=== PATIENT | female | born 1980 | race African-American/Black ===

== ENCOUNTER 2016-11-23 10:06 | Emergency (ER) | payer OTHER ==
[~2016-11-23] VITALS: Ht 170.2 cm; Wt 50.8 kg
[2016-11-23] MEDS ORDERED: TIZANIDINE HCL4 MG PO (10:26)
[2016-11-23] MEDS ORDERED: LOTRISONE CREAM15 GM TOP (10:26)
[2016-11-23 10:44] VITALS: BP 151/112
== END 2016-11-23 10:46 | disposition home or self-care (01) ==
LOC: ER 10:06
DX: S13.4XXA Sprain of ligaments of cervical spine, initial encounter (principal); M25.532 Pain in left wrist; I10 Essential (primary) hypertension; F17.210 Nicotine dependence, cigarettes, uncomplicated; F10.99 Alcohol use, unspecified with unspecified alcohol-induced disorder; Z88.6 Allergy status to analgesic agent; V89.2XXA Person injured in unspecified motor-vehicle accident, traffic, initial encounter; Y93.I9 Activity, other involving external motion; Y92.89 Other specified places as the place of occurrence of the external cause; Y99.8 Other external cause status

== ENCOUNTER 2018-09-13 02:19 | Inpatient (IN) | payer OTHER ==
[2018-09-13] VITALS (8 sets, daily range): BP systolic 95–148; BP diastolic 61–93
[~2018-09-13] VITALS: Ht 170.2 cm; Wt 53.1 kg
[~2018-09-13 02:19] MED LIST: LOTRISONE CREAM15 GM TOP; TIZANIDINE HCL4 MG PO
[2018-09-13 03:10] LABS: ABSOLUTE NEUTROPHILS 3.2 thou/uL (1.4-8.2); BASOPHILS 1.2 % (0.0-2.0); EOSINOPHILS 1.6 % (0.0-3.0); HEMATOCRIT 45.1 % (37.0-47.0); HEMOGLOBIN 15.6 gm/dL (12.0-15.0); LYMPHOCYTES 27.2 % (24.0-44.0); MCH 33.9 pg (26.0-34.0); MCHC 34.5 g/dL (28.0-37.0); MCV 98.2 fL (80.0-100.0); MONOCYTES 10.6 % (1.0-8.0); PLATELET COUNT 214 thou/uL (150-400); POLYS 59.4 % (36.0-66.0); RDW 12.5 % (10.5-14.5); WBC 5.3 thou/uL (4.0-11.0)
[2018-09-13 03:12] LABS: URINE BILIRUBIN 1+ (Negative); URINE BLOOD TRACE (Negative); URINE CLARITY SL CLOUDY; URINE COLOR YELLOW; URINE GLUCOSE-RANDOM* NEGATIVE (Negative); URINE KETONES 1+ (Negative); URINE LEUKOCYTES-REFLEX NEGATIVE (Negative); URINE NITRITE-REFLEX NEGATIVE (Negative); URINE PROTEIN (DIPSTICK) 2+ (Negative)
[2018-09-13 03:20] LABS: AMP/METHAMP Negative (Negative); BARBITURATES Negative (Negative); BENZODIAZEPINES Negative (Negative); COCAINE Negative (Negative); METHADONE Negative (Negative); OPIATES Negative (Negative); PCP Negative (Negative)
[2018-09-13 03:28] LABS: AMORPHOUS URATES Moderate /LPF (None Seen); BACTERIA-REFLEX 1-9 Few /HPF (None Seen); FINE GRANULAR CASTS 4-10 Moderate /LPF (None Seen); HYALINE CASTS 4-10 Moderate /LPF (None Seen); MUCUS >6 Heavy strn/LPF (None Seen); SQUAMOUS 4-10 Moderate /LPF (0-3); URINE RBC 3-10 Few /HPF (0-2); URINE WBC-REFLEX 0-5 Rare /HPF (0-5)
[2018-09-13 03:30] LABS: ALBUMIN 4.3 g/dL (3.4-5.0); ANION GAP 22 mmol/L (7-16); BUN 12 mg/dL (7-18); CHLORIDE 91 mmol/L (98-107); CO2 19 mmol/L (21-32); CREATININE 0.9 mg/dL (0.6-1.0); GLUCOSE 115 mg/dL (74-106); LIPASE 127 U/L (73-393); MAGNESIUM 1.7 mg/dL (1.8-2.4); POTASSIUM 2.6 mmol/L (3.5-5.1); SALICYLATE 8.9 mg/dL (2.8-20.0); SGOT 596 U/L (15-37); SGPT 678 U/L (30-65); SODIUM 132 mmol/L (136-145); TOTAL BILIRUBIN 0.8 mg/dL (<0.1-1.0); TOTAL PROTEIN 8.6 g/dL (6.4-8.2); TROPONIN-I <0.06 ng/mL (<0.06)
[2018-09-13 04:26] LABS: PHOSPHORUS 1.5 mg/dL (2.5-4.9)
[2018-09-13 04:48] LABS: FOLIC ACID 12.1 ng/mL (8.6-58.9)
[2018-09-13] MEDS ORDERED: HYDROCHLOROTHIA25 M2 PO (05:38)
[2018-09-13] MEDS ORDERED: NORVASC5 MG PO (05:38)
--- NOTE | 2018-09-13 08:22 | EKG ---
[address] [address] ELECTROCARDIOGRAM REPORT Name: RASHEL CHERY Room #: 357-P ADM IN M.R.#: [id number] ������������������ Admission: 09/13/18 ������������������ Attend Phys: Devin Marshall MD Discharge: ������������������ Date of : 78 Report #: [id number] ����������������������������������������������������������������� [id number] THIS REPORT FOR: //name// [facility] ED Test Date: 2018-09-13 Test Time: 03:12:32 Pat Name: RASHEL CHERY Department: Room: 357 Gender: F C Web Developer: lynn : 1980 Requested By: Cosmo Hanson Order Number: [id number] MD: Jaiml Sheets Measurements Intervals [place] Rate: 110 P: 54 AL: 119 QRS: 48 QRSD: 89 T: 32 QT: 365 QTc: 494 Interpretive Statements Sinus tachycardia Probable left ventricular hypertrophy Borderline prolonged QT interval No previous ECG available for comparison Electronically Signed On 09-13-2018 8:22:22 CDT by Jamil Sheets [email or web address] ��������������������������������������������� <ELECTRONICALLY SIGNED> ���������������������������������������� By: Jamil Sheets MD, [facility] ��������������������������������������������� 09/13/18 08 1 031 Jamil Sheets MD, FACC /EPI
--- NOTE | 2018-09-13 14:28 | NUR ---
ASSUMED CARE OF PT AT 0830 THIS SHIFT. PT WAS ADMITTED FROM ED WITH ETOH WITHDRAWAL AND LOW POTASSIUM. PT IS COOPERATIVE, HAS GENERALIZED ACHES AND PAIN. PT WAS TRYING TO QUIT ALCOHOL AT HOME HOWEVER, WENT INTO WITHDRAWAL PAIN AND FRIEND HAD TO BRING PT TO THE HOSPITAL. PT IS ON CIWA PROTOCOL, CURRENTLY RESTING COMFORTABLY IN ROOM. PT HAS NOT HAD VISITORS THIS SHIFT SO FAR, EDUCATION WAS PROVIDED. PLAN OF CARE IS TO CONTINUE TO MONITOR PT CLOSELY AT THIS TIME.
[2018-09-14 03:45] VITALS: BP 112/72
[2018-09-14 05:52] LABS: CALCIUM 8.5 mg/dL (8.5-10.1); CREATININE 0.6 mg/dL (0.6-1.0); MAGNESIUM 2.4 mg/dL (1.8-2.4); POTASSIUM 4.6 mmol/L (3.5-5.1)
--- NOTE | 2018-09-14 05:59 | NUR ---
PT MAKING SLOW PROGRESS TOWARDS GOALS. DENIES ANY NAUSEA BUT DID SAY AT THE TIME OF THE INITAL ASSESSMENT THAT HER STOMACH WAS "QUESTIONABLE" IN REGARDS TO NAUSEA. DENIES ANY NAUSEA THIS MORNING. INTIALLY RATING RUQ ABD PAIN AND HEADACHE WAS 6/10. NO RELIEF WITH TYLENOL. IMPROVED RELIEF WITH TRAMADOL. MOTHER AT BEDSIDE. PT HAS BEEN COMPLIANT WITH CALLING FOR ASSISTANCE TO AMBULATE TO THE TOILET. GAIT IS UNSTEADY. PT DOES STATE THAT SHE STILL FEELS "LIKE I'M IN A FOG."
[2018-09-14 07:45] VITALS: BP 139/96
[2018-09-14 08:44] VITALS: BP 139/96
--- NOTE | 2018-09-14 11:14 | NUR ---
care of pt assumed this am @ ~0700. pt requesting to be allowed to sleep and rest today. pt co a headache this am, request medication to relieve. pt also co of RUQ discomfort w/ nausea w/o emesis. pt only requesting to eat her fruit bowl off her breakfast tray, states that nothing else sounds good to eat. pt up w/ minimal assist, gait belt, pt noted to be unsteady, but balanced and coordinated, but pt co of dizziness when first stands to walk w/ need to sit back down and allow dizziness to pass. ciwa every 4 hours. pt's mother at . pt's mother asking that start the pt's blood pressure medication. pt and mother informed of need for 1) to wear yellow socks, 2) call staff to assist w/ ambulation and 3) to have bed alarm on and active.
[2018-09-14 11:40] VITALS: BP 117/81
--- NOTE | 2018-09-14 12:22 | NUR ---
ASSESSMENT_ CM REVIEWED CHART AND MET WITH PATIENT AT THE BEDSIDE. PT REPORTS SHE LIVES WITH HER PARTNER. PT STATES SHE IS FULLY INDEPENDENT WITH ADLS AND AMBULATION. CM ASKED IF PATIENT HAD INSURANCE AND SHE STATED NO. PT REPORTS SHE DOES HAVE A PCP AND HAD BEEN SEEING DR. DURBIN (UNSURE THE LAST NAME) AT [facility]. PT REPORTS SHE IS INTERESTED IN RESOURCES ON OUTPATIENT/INPT TREATMENT FOR ALCOHOL USE. CM PROVIDED PATIENT WITH SUBSTANCE ABUSE RESOURCE SHEET AND AA. CM ALSO PROVIDED HER WITH GL[facility]IA [phone] WITH [id number] CONTACT INFO SO SHE CAN CALL HER TO FIND PROGRAMS AVAILABLE TO HER AND THAT HAVE OPENINGS. PT REPORTS NO FURTHER NEEDS FROM CM.
== END 2018-09-14 13:30 | disposition home or self-care (01) | DRG 392 ==
LOC: ER 02:19 → EROBS 04:28 → 3W 04:28 → EROBS 04:30 → 3W 07:57 → ENTRNSPT 09-14 14:12 → EDTRNSPTSTS 09-14 14:15
PROVIDERS: Emergency Medicine; Nurse Practitioner; ADMIT Hospitalist
DX: K29.20 Alcoholic gastritis without bleeding (principal); F10.10 Alcohol abuse, uncomplicated; I10 Essential (primary) hypertension; K70.10 Alcoholic hepatitis without ascites; E87.6 Hypokalemia; E83.42 Hypomagnesemia; E86.0 Dehydration; I95.9 Hypotension, unspecified; F19.10 Other psychoactive substance abuse, uncomplicated; F17.210 Nicotine dependence, cigarettes, uncomplicated; Z71.51 Drug abuse counseling and surveillance of drug abuser; Z79.899 Other long term (current) drug therapy; Z88.6 Allergy status to analgesic agent
CPT/HCPCS: 10879